=== PATIENT | female | born 1975 | race Caucasian/White ===

== ENCOUNTER 2018-05-01 16:36 | Emergency (ER) | payer OTHER ==
[~2018-05-01] VITALS: Ht 167.6 cm; Wt 100.9 kg
[2018-05-01 16:38] VITALS: TEMP 36.9; Ht 167.6 cm; Wt 100.9 kg
[2018-05-01] MEDS ORDERED: LIDO/EPINEPHRINE/SOD BICARB 20 ML VIAL ONE ×2 (17:59→20:38)
[2018-05-01] MEDS ORDERED: SODIUM CHLORIDE 0.9% 1000ML 1,000 ML IV STA (18:47)
[2018-05-01] MEDS ORDERED: OPTIRAY 320 IV PRN (19:00)
[2018-05-01 19:44] VITALS: O2SAT 98
[2018-05-01 19:44] LABS: HEMATOCRIT 45.8 % (37-47); HEMOGLOBIN 15.9 g/dL (12.0-16.0); MEAN CELL VOLUME 85.3 fL (80-100); MEAN CORPUSCULAR HEMOGLOBIN 29.6 pg (25-34); MEAN CORPUSCULAR HGB CONC 34.7 g/dl (32-36); MEAN PLATELET VOLUME 10.8 fL (7.4-10.4); PLATELET COUNT 268 K/uL (130-400); RED CELL DISTRIBUTION WIDTH CV 13.5 % (11.5-14.5); RED CELL DISTRIBUTION WIDTH SD 41.5 fL (36.4-46.3); WHITE BLOOD COUNT 18.82 K/uL (4.8-10.8)
[2018-05-01 19:54] LABS: ISTAT CREATININE 0.6 mg/dl (0.6-1.3); ISTAT IONIZED CALCIUM 1.17 mmol/l (1.12-1.32); ISTAT POTASSIUM 3.8 mEq/L (3.3-5.0)
[2018-05-01 19:57] LABS: INR 0.9 (0.9-1.1); PTT PATIENT 27.6 SECONDS (21.0-31.0)
[2018-05-01] MEDS ORDERED: GABA-113 PO (20:10)
[2018-05-01] MEDS ORDERED: IBUPROFEN 600 MG TAB PO STA (20:10)
--- NOTE | 2018-05-01 20:10 | DIAGNOSTIC IMAGING REPORT ---
R HAND MIN 3 VIEWS ROUTINE CLINICAL HISTORY: 42 years-old Female presenting with right hand pain. TECHNIQUE: Frontal, oblique, lateral views of the right hand were obtained. COMPARISON: None. FINDINGS: No acute fracture or malalignment. No advanced degenerative change. No radiographic soft tissue abnormality. IMPRESSION: No acute osseous injury. Electronically signed by: Familia Day M.D. 05/01/2018 8:09 PM Dictated Date/Time: 05/01/2018 8:08 PM
[2018-05-01] MEDS ORDERED: HMLIS SQ (20:11)
--- NOTE | 2018-05-01 20:11 | DIAGNOSTIC IMAGING REPORT ---
R FOREARM 2 VIEWS ROUTINE CLINICAL HISTORY: 42 years-old Female presenting with right forearm pain. TECHNIQUE: Frontal and lateral views the right forearm are obtained. COMPARISON: None. FINDINGS: No acute fracture or malalignment. No advanced degenerative change. No radiographic soft tissue abnormality. IMPRESSION: No acute osseous injury. Electronically signed by: Familia Day M.D. 05/01/2018 8:10 PM Dictated Date/Time: 05/01/2018 8:09 PM
[2018-05-01] MEDS ORDERED: GLC/500 PO (20:12)
[2018-05-01] MEDS ORDERED: BACL10TA PO (20:15)
[2018-05-01] MEDS ORDERED: SPIR25TA PO (20:16)
[2018-05-01] MEDS ORDERED: FURO-85 PO (20:17)
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
[2018-05-01] MEDS ORDERED: ALPR-411 PO (20:21)
[2018-05-01] MEDS ORDERED: DOXY100C76 PO (20:22)
[2018-05-01] MEDS ORDERED: IBUP600T44 PO (20:23)
[2018-05-01] MEDS ORDERED: VNTHFA/IN INH (20:24)
[2018-05-01 20:25] LABS: ALBUMIN 4.1 gm/dl (3.4-5.0); CALCIUM 9.4 mg/dl (8.5-10.1); CREATININE 0.84 mg/dl (0.60-1.20); POTASSIUM 3.7 mmol/L (3.5-5.1); TOTAL PROTEIN 8.5 gm/dl (6.4-8.2)
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
[2018-05-01 22:12] VITALS: BP 151/82; PULSE 68; O2SAT 99
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
== END 2018-05-01 22:14 | disposition home or self-care (01) ==
LOC: C.EDB 16:37 → C.EDD 22:14
DX: S62.115A Nondisplaced fracture of triquetrum [cuneiform] bone, left wrist, initial encounter for closed fracture (principal); T14.8XXA Other injury of unspecified body region, initial encounter; V43.52XA Car driver injured in collision with other type car in traffic accident, initial encounter; E27.8 Other specified disorders of adrenal gland; E10.65 Type 1 diabetes mellitus with hyperglycemia; Z79.4 Long term (current) use of insulin; M79.7 Fibromyalgia; M06.9 Rheumatoid arthritis, unspecified; Z79.899 Other long term (current) drug therapy; Z88.8 Allergy status to other drugs, medicaments and biological substances; Z88.6 Allergy status to analgesic agent

== ENCOUNTER → 2018-05-01 | Outpatient (CLI) | payer OTHER ==
[~2018-05-01] MED LIST: ALPR-411 PO; BACL10TA PO; DOXY100C76 PO; FURO-85 PO; GABA-113 PO; GLC/500 PO; HMLIS SQ; IBUP600T44 PO; SPIR25TA PO; VNTHFA/IN INH
== END | disposition home or self-care (01) ==
LOC: C.LAB 16:29
DX: Z02.83 Encounter for blood-alcohol and blood-drug test (principal)